=== PATIENT | female | born 1990 ===

== ENCOUNTER 2024-11-18 09:26 | Outpatient (CLI) | payer OTHER | END 2024-11-18 09:28 | disposition home or self-care (01) | LOC: SONOGRAMA 09:26 | PROVIDERS: ATTEND Pathology Anatomic Pathology & Clinical Pathology | DX: D34 Benign neoplasm of thyroid gland (principal); C73 Malignant neoplasm of thyroid gland; E07.89 Other specified disorders of thyroid ==